=== PATIENT | female | born 1995 | race African-American/Black ===

== ENCOUNTER 2020-09-28 03:16 | Emergency (ER) | payer MEDICAID ==
[~2020-09-28] VITALS: Ht 160 cm; Wt 49.0 kg
[2020-09-28] MEDS ORDERED: ALBUTEROL (0.083%) 2.5MG/3ML NEB HHN STA (03:47)
[2020-09-28] MEDS ORDERED: IPRATROPIUM BROMIDE (0.02%) 0.5MG/2.5ML NEB HHN STA (03:47)
[2020-09-28] MEDS ORDERED: PREDNISONE 20MG TABLET PO ONE (04:00)
[2020-09-28] MEDS ORDERED: ALBU6.7H9 INH (04:57)
[2020-09-28] MEDS ORDERED: P20 MT (04:57)
[2020-09-28 05:00] VITALS: BP 107/63
== END 2020-09-28 05:09 | disposition home or self-care (01) ==
LOC: ER 03:16
DX: J45.901 Unspecified asthma with (acute) exacerbation (principal)
CPT/HCPCS: 94640; 99283; 99406; J7512; Z7610